=== PATIENT | female | born 1995 | race Two or more races ===

== ENCOUNTER 2023-09-21 07:13 | Emergency (ER) | payer BC ==
[2023-09-21] MEDS ORDERED: SODIUM CHLORIDE 0.9% 500 ML INFUS.BAG IV ONE (07:19)
[2023-09-21 07:40] LABS: BASO % 0.5 % (0-2.0); EOS % 3.7 % (0-4.5); HEMOGLOBIN 9.9 GM/dL (10.7-15.3); LYMPH % 35.9 % (8-40); MCHC 31.1 g/dl (32.0-36.0); MEAN CELL VOLUME 62.3 fl (80-96); MEAN PLT VOLUME 7.8 fl (7.5-11.1); MONO % 5.9 % (3.8-10.2); PLATELET COUNT 408 10^3/uL (134-434); RBC 5.13 M/mm3 (3.60-5.2); RDW 16.2 % (11.6-15.6); WHITE BLOOD COUNT 11.7 K/mm3 (4.0-10.0)
[2023-09-21 07:44] LABS: MCH 19.4 pg (25.7-33.7)
[2023-09-21 08:02] LABS: ALBUMIN 3.6 g/dl (3.4-5.0); BLOOD UREA NITROGEN 13.2 mg/dL (7-18)
[2023-09-21 08:05] LABS: CREATININE 0.7 mg/dL (0.55-1.3)
[2023-09-21 08:06] LABS: BILIRUBIN,TOTAL 0.4 mg/dL (0.2-1)
[2023-09-21 08:13] LABS: POTASSIUM 3.8 mmol/L (3.5-5.1)
[2023-09-21 08:24] LABS: INR 1.12 (0.83-1.09)
[2023-09-21 08:26] VITALS: PULSE 71; RESP 16; BMI 27.3
[2023-09-21 08:27] LABS: ACTIVATED PTT 38.2 SECONDS (25.2-36.5)
[2023-09-21 08:43] LABS: ANISOCYTOSIS 2+; MACROCYTOSIS 0; OVALOCYTE 1+
[2023-09-21 09:05] VITALS: BP 119/75; TEMP 98
== END 2023-09-21 09:22 | disposition home or self-care (01) ==
LOC: JER 07:13
DX: R55 Syncope and collapse (principal)
CPT/HCPCS: 36415; 80053; 83735; 84484; 84703; 85025; 85610; 85730; 86850; 86900; 86901; 93005; 93010; 99284-25

== ENCOUNTER 2025-02-08 07:01 | Emergency (ER) | payer BC ==
[2025-02-08 07:08] VITALS: BP 136/78; PULSE 94; RESP 20; TEMP 98.4; BMI 27.3
== END 2025-02-08 07:24 | disposition home or self-care (01) ==
LOC: JERFT 07:01 → JER 07:01 → JERFT 07:24
DX: J22 Unspecified acute lower respiratory infection (principal); R05.9 Cough, unspecified; M79.10 Myalgia, unspecified site; R09.81 Nasal congestion
CPT/HCPCS: 0241U-QW; 99283-25